=== PATIENT | female | born 1950 | race Caucasian/White ===

== ENCOUNTER 2016-05-06 05:21 | Day surgery (SDC) | payer MEDICARE ==
[~2016-05-06] VITALS: Ht 167.6 cm; Wt 106.0 kg
[2016-05-06] MEDS ORDERED: LACTATED RINGERS 1,000 ML IV SCH (05:59)
[2016-05-06] MEDS ORDERED: LIDOCAINE 1%, 2ML SQ PRN (06:00)
[2016-05-06 06:07] VITALS: BP 145/82
[2016-05-06] MEDS ORDERED: LISI-167 PO (06:15)
[2016-05-06] MEDS ORDERED: LEVO50TA5 PO (06:15)
[2016-05-06] MEDS ORDERED: DOCU100C PO (06:15)
[2016-05-06] MEDS ORDERED: MULT-658 PO (06:15)
[2016-05-06] MEDS ORDERED: ASPI81TA50 PO (06:15)
[2016-05-06] MEDS ORDERED: GABA100C8 PO (06:15)
[2016-05-06] MEDS ORDERED: METF500T4 PO (06:15)
[2016-05-06] MEDS ORDERED: OXCA300T PO (06:15)
[2016-05-06] MEDS ORDERED: ATOR80TA75 PO (06:15)
[2016-05-06] MEDS ORDERED: OXYC5CAP4 PO (06:22)
[2016-05-06] MEDS ORDERED: VANCOMYCIN 1,000 MG ONE (07:03)
[2016-05-06] MEDS ORDERED: LIDOCAINE 0.5%-EPI 1:200K, 50ML ONE (07:03)
[2016-05-06] MEDS ORDERED: BUPIVACAINE/PF-EPI 0.25% 1:200K ONE (07:03)
[2016-05-06] MEDS ORDERED: THROMBIN 5,000 UNIT VIAL TP ONE (07:04)
[2016-05-06] MEDS ORDERED: FENTANYL PF 250 MCG/5ML ONE (07:29)
[2016-05-06] MEDS ORDERED: MIDAZOLAM 1 MG/ML, 2ML ONE (07:29)
[2016-05-06] MEDS ORDERED: LABETALOL 5MG/ML, 20ML IV PRN (09:00)
[2016-05-06] MEDS ORDERED: OXYcodone 5 MG/5 ML ORAL.SOL UDC PO PRN (09:00)
[2016-05-06] MEDS ORDERED: hydrALAzine 20 MG/ML, 1ML IV PRN (09:00)
[2016-05-06] MEDS ORDERED: ACETAMINOPHEN 325 MG TABLET PO PRN (09:00)
[2016-05-06] MEDS ORDERED: ONDANSETRON 2MG/ML, 2ML IVPush PRN (09:00)
[2016-05-06] MEDS ORDERED: METOCLOPRAMIDE 5 MG/ML, 2ML IV PRN (09:00)
[2016-05-06] MEDS ORDERED: FENTANYL PF 100 MCG/2ML ONE (10:45)
[2016-05-06] MEDS ORDERED: OXYcodone 5 MG/5 ML ORAL.SOL UDC ONE (10:45)
[2016-05-06] MEDS: FENTANYL PF 100 MCG/2ML IV PRN ×2 (10:47→10:53)
[2016-05-06] MEDS ORDERED: ACETAMINOPHEN 325 MG TABLET ONE (10:57)
[2016-05-06] MEDS ORDERED: HYDROmorphone 2 MG/ML, 1ML ONE (11:02)
[2016-05-06] MEDS: HYDROmorphone 1 MG/ML, 1ML IV PRN ×2 (11:04→11:24)
[2016-05-06] MEDS ORDERED: MEPERIDINE/PF 25MG/0.5ML ONE (11:17)
[2016-05-06] MEDS ORDERED: MEPERIDINE/PF 25MG/0.5ML IVPush PRN (11:30)
[2016-05-06] MEDS ORDERED: OXYcodone IR 5MG TABLET PO PRN (13:30)
[2016-05-06] MEDS ORDERED: ROCURONIUM 10 MG/ML ONE (16:13)
[2016-05-06] MEDS ORDERED: ONDANSETRON 2MG/ML, 2ML ONE (16:13)
[2016-05-06] MEDS ORDERED: PROPOFOL 10 MG/ML, 20ML ONE (16:13)
[2016-05-06] MEDS ORDERED: SUCCINYLCHOLINE 20 MG/ML, 10ML ONE (16:13)
[2016-05-06] MEDS ORDERED: CEFAZOLIN 1,000 MG ONE (16:13)
== END 2016-05-06 16:40 | disposition home or self-care (01) ==
LOC: OUT 05:21
PROVIDERS: ATTEND Orthopaedic Surgery Orthopaedic Surgery of the Spine
DX: M51.17 Intervertebral disc disorders with radiculopathy, lumbosacral region (principal); G47.33 Obstructive sleep apnea (adult) (pediatric); I10 Essential (primary) hypertension; E11.9 Type 2 diabetes mellitus without complications; E66.9 Obesity, unspecified; Z68.37 Body mass index [BMI] 37.0-37.9, adult; F31.9 Bipolar disorder, unspecified; Z87.440 Personal history of urinary (tract) infections; Z90.49 Acquired absence of other specified parts of digestive tract; Z90.710 Acquired absence of both cervix and uterus
CPT/HCPCS: 63056; 72100; 82962; J0330; J0690; J1170; J2175; J2250; J2405; J2704; J3010; J3370; J3490; J7120

== ENCOUNTER 2017-06-17 05:40 | Inpatient (IN) | payer MEDICARE ==
[~2017-06-17] VITALS: Ht 167.6 cm; Wt 112.4 kg
[~2017-06-17 05:40] MED LIST: ASPI81TA50 PO; ATOR-2 PO; DOCU-180 PO; GABA-826 PO; LEVO50TA5 PO; LISI-167 PO; METF500T5 PO; MULT-658 PO; OXCA300T PO; OXYC5CAP2 PO
[2017-06-17] MEDS ORDERED: LIDOCAINE-MPF 1%, 2ML INFIL ONE (06:30)
[2017-06-17] MEDS ORDERED: LACTATED RINGERS 1,000 ML IV SCH (06:30)
[2017-06-17] MEDS ORDERED: TRAZ150T62 PO (06:46)
[2017-06-17] MEDS ORDERED: OMEP-110 PO (06:46)
[2017-06-17] MEDS ORDERED: TRAM50TA2 PO (06:46)
[2017-06-17] MEDS ORDERED: HEPARIN 1,000 UNITS/ML, 30ML ONE (06:53)
[2017-06-17] MEDS ORDERED: THROMBIN 5,000 UNIT VIAL TP ONE (07:02)
[2017-06-17] MEDS ORDERED: VANCOMYCIN 1,000 MG ONE (07:02)
[2017-06-17] MEDS ORDERED: BACITRACIN 50,000 UNIT ONE (07:03)
[2017-06-17] MEDS ORDERED: LIDOCAINE/PF 1%, 30ML ONE (07:03)
[2017-06-17 07:10] VITALS: BP 167/84
[2017-06-17] MEDS ORDERED: FENTANYL PF 100 MCG/2ML ONE (07:36)
[2017-06-17] MEDS ORDERED: METOCLOPRAMIDE 5 MG/ML, 2ML ONE ×2 (07:36→07:43)
[2017-06-17] MEDS ORDERED: PROPOFOL 50 ML ONE (07:36)
[2017-06-17] MEDS ORDERED: DEXAMETHASONE 4 MG/ML, 1ML ONE ×2 (07:36→07:43)
[2017-06-17] MEDS ORDERED: MIDAZOLAM 1 MG/ML, 5ML ONE (07:37)
[2017-06-17] MEDS ORDERED: EPHEDRINE 50 MG/ML, 1ML ONE (07:38)
[2017-06-17] MEDS ORDERED: GLYCOPYRROLATE 0.2MG/1ML, 5ML ONE (07:43)
[2017-06-17] MEDS ORDERED: ONDANSETRON 2MG/ML, 2ML ONE (07:43)
[2017-06-17] MEDS ORDERED: CEFAZOLIN 1,000 MG ONE (07:43)
[2017-06-17] MEDS ORDERED: NEOSTIGMINE 1 MG/ML, 10ML ONE (07:43)
[2017-06-17] MEDS ORDERED: ROCURONIUM 10 MG/ML,10ML ONE (07:43)
[2017-06-17] MEDS ORDERED: MEPERIDINE/PF 50 MG/ML ONE (09:25)
[2017-06-17] MEDS ORDERED: OXYcodone 5 MG/5 ML ORAL.SOL UDC ONE (09:50)
[2017-06-17] MEDS ORDERED: LABETALOL 5MG/ML, 20ML IV PRN (10:00)
[2017-06-17] MEDS ORDERED: ONDANSETRON 2MG/ML, 2ML IVPush PRN (10:00)
[2017-06-17] MEDS ORDERED: HYDROmorphone 1 MG/ML, 1ML IV PRN (10:00)
[2017-06-17] MEDS ORDERED: OXYcodone 5 MG/5 ML ORAL.SOL UDC PO PRN (10:00)
[2017-06-17] MEDS ORDERED: MEPERIDINE/PF 25MG/0.5ML IVPush PRN (10:00)
[2017-06-17] MEDS ORDERED: FENTANYL PF 100 MCG/2ML IV PRN (10:00)
[2017-06-17] MEDS ORDERED: MIDAZOLAM 1 MG/ML, 2ML IV PRN (10:00)
[2017-06-17] MEDS ORDERED: morphine SULFATE 10 MG/ML, 1ML IV PRN ×2 (11:30→13:00)
[2017-06-17] MEDS ORDERED: PROMETHAZINE 25 MG/ML, 1ML IM PRN (11:30)
[2017-06-17] MEDS ORDERED: BISACODYL 10 MG SUPP PR PRN (11:30)
[2017-06-17] MEDS ORDERED: MAGNESIUM HYDROXIDE 8%, 30ML UDC PO PRN (11:30)
[2017-06-17] MEDS ORDERED: ONDANSETRON 2MG/ML, 2ML IV PRN (11:30)
[2017-06-17] MEDS: NS + 20MEQ KCL 1,000 ML IV SCH (13:06)
[2017-06-17 14:00] VITALS: BP 149/72
[2017-06-17] MEDS: METOCLOPRAMIDE 5 MG/ML, 2ML IV SCH ×2 (14:30→21:46)
[2017-06-17] MEDS: CEFAZOLIN PMX 1GM/50ML 50 ML IVPB SCH (15:47)
[2017-06-17] MEDS ORDERED: GABAPENTIN 100 MG CAPSULE PO SCH (16:00)
[2017-06-17] MEDS ORDERED: INSULIN REGULAR 100 UNITS/ML, 3ML VIAL SQ-INSULIN SCH (16:00)
[2017-06-17] MEDS ORDERED: OXCARBAZEPINE 300MG TABLET PO SCH (16:00)
[2017-06-17] MEDS: PANTOPROZOLE 40MG TABLET PO SCH (16:18)
[2017-06-17] MEDS ORDERED: INSULIN LISPRO 100 UNITS/ML, PEN SQ-INSULIN PRN (16:30)
[2017-06-17] MEDS ORDERED: metFORMIN 500 MG TABLET PO SCH (17:00)
[2017-06-17 20:01] VITALS: BP 150/57
[2017-06-17] MEDS: TRAZODONE 150MG TABLET PO SCH (21:46)
[2017-06-17] MEDS: GABAPENTIN 100 MG CAPSULE PO SCH (21:47)
[2017-06-17] MEDS: OXCARBAZEPINE 300MG TABLET PO SCH (21:47)
[2017-06-17] MEDS: ATORVASTATIN 80 MG TABLET PO SCH (21:47)
[2017-06-18] MEDS: NS + 20MEQ KCL 1,000 ML IV SCH ×3 (00:04→20:00)
[2017-06-18] MEDS: CEFAZOLIN PMX 1GM/50ML 50 ML IVPB SCH (00:04)
[2017-06-18 00:08] VITALS: BP 123/46
[2017-06-18] MEDS: METOCLOPRAMIDE 5 MG/ML, 2ML IV SCH ×4 (02:00→20:00)
[2017-06-18 03:51] VITALS: BP 107/48
[2017-06-18 05:53] LABS: ALBUMIN 2.9 g/dL (3.4-5.0); ANION GAP 7 mmol/L (5-15); CALCIUM 8.4 mg/dL (8.5-10.1); CHLORIDE 108 mmol/L (98-107)
[2017-06-18 05:55] LABS: CREATININE 0.72 mg/dL (0.55-1.02)
[2017-06-18] MEDS: PANTOPROZOLE 40MG TABLET PO SCH ×2 (06:24→16:22)
[2017-06-18] MEDS: LEVOTHYROXINE 50 MCG TABLET PO SCH (06:24)
[2017-06-18] MEDS: ENOXAPARIN 30 MG/0.3 ML SQ SCH ×2 (06:24→17:53)
[2017-06-18] MEDS: HYDROcodone/APAP 10/325 MG TABLET PO PRN ×2 (06:24→10:51)
[2017-06-18 07:54] VITALS: BP 121/52
[2017-06-18] MEDS: LISINOPRIL 10 MG TABLET PO SCH (08:06)
[2017-06-18] MEDS: GABAPENTIN 100 MG CAPSULE PO SCH ×2 (08:06→21:34)
[2017-06-18] MEDS: SENNA/DOCUSATE TABLET PO SCH (08:06)
[2017-06-18] MEDS: DOCUSATE 100 MG CAPSULE PO SCH ×2 (08:06→08:17)
[2017-06-18] MEDS: OXCARBAZEPINE 300MG TABLET PO SCH ×2 (08:12→21:33)
[2017-06-18] MEDS ORDERED: LISINOPRIL 10 MG TABLET PO SCH (09:00)
[2017-06-18 13:12] VITALS: BP 150/59
[2017-06-18 14:32] VITALS: BP 134/62
[2017-06-18 19:00] VITALS: BP 158/69
[2017-06-18] MEDS: TRAZODONE 150MG TABLET PO SCH (21:33)
[2017-06-18] MEDS: HYDROcodone/APAP 5/325 TABLET PO PRN (21:34)
[2017-06-18] MEDS: ATORVASTATIN 80 MG TABLET PO SCH (21:34)
[2017-06-19 00:36] VITALS: BP 137/66
[2017-06-19] MEDS: METOCLOPRAMIDE 5 MG/ML, 2ML IV SCH ×2 (02:00→07:51)
[2017-06-19 05:13] LABS: CHLORIDE 109 mmol/L (98-107)
[2017-06-19 05:23] LABS: ANION GAP 9 mmol/L (5-15); CALCIUM 8.4 mg/dL (8.5-10.1); CREATININE 0.47 mg/dL (0.55-1.02)
[2017-06-19] MEDS: NS + 20MEQ KCL 1,000 ML IV SCH (05:26)
[2017-06-19] MEDS: ENOXAPARIN 30 MG/0.3 ML SQ SCH (06:00)
[2017-06-19] MEDS: LEVOTHYROXINE 50 MCG TABLET PO SCH (06:16)
[2017-06-19] MEDS: PANTOPROZOLE 40MG TABLET PO SCH (06:16)
[2017-06-19 07:47] VITALS: BP 144/75
[2017-06-19] MEDS: DOCUSATE 100 MG CAPSULE PO SCH (07:51)
[2017-06-19] MEDS: HYDROcodone/APAP 5/325 TABLET PO PRN (07:58)
[2017-06-19] MEDS: OXCARBAZEPINE 300MG TABLET PO SCH (07:58)
[2017-06-19] MEDS: SENNA/DOCUSATE TABLET PO SCH (07:58)
[2017-06-19] MEDS: GABAPENTIN 100 MG CAPSULE PO SCH (07:58)
[2017-06-19 08:51] VITALS: BP 124/69
[2017-06-19] MEDS: LISINOPRIL 10 MG TABLET PO SCH (08:52)
[2017-06-19 13:05] VITALS: BP 154/73
== END 2017-06-19 14:25 | disposition home or self-care (01) | DRG 459 ==
LOC: ORIP 05:40 → 4NOR 11:10 → DCLOUNGE 06-19 14:18
PROVIDERS: ADMIT Orthopaedic Surgery Orthopaedic Surgery of the Spine; ATTEND Orthopaedic Surgery Orthopaedic Surgery of the Spine
PROC: 0SG30A0 Fusion of Lumbosacral Joint with Interbody Fusion Device, Anterior Approach, Anterior Column, Open Approach (ICD-10-PCS; 2017-06-17)
PROC: 0SR40JZ Replacement of Lumbosacral Disc with Synthetic Substitute, Open Approach (ICD-10-PCS; 2017-06-17)
PROC: 0SB40ZZ Excision of Lumbosacral Disc, Open Approach (ICD-10-PCS; principal; 2017-06-17 07:30)
DX: M51.17 Intervertebral disc disorders with radiculopathy, lumbosacral region (principal); E43 Unspecified severe protein-calorie malnutrition; Z68.41 Body mass index [BMI] 40.0-44.9, adult; E66.01 Morbid (severe) obesity due to excess calories; M48.07 Spinal stenosis, lumbosacral region; E03.9 Hypothyroidism, unspecified; E11.9 Type 2 diabetes mellitus without complications; E78.5 Hyperlipidemia, unspecified; F31.9 Bipolar disorder, unspecified; G47.33 Obstructive sleep apnea (adult) (pediatric); I10 Essential (primary) hypertension; K21.9 Gastro-esophageal reflux disease without esophagitis; Z79.899 Other long term (current) drug therapy; Z80.6 Family history of leukemia; Z80.8 Family history of malignant neoplasm of other organs or systems; Z82.49 Family history of ischemic heart disease and other diseases of the circulatory system; Z87.440 Personal history of urinary (tract) infections; Z83.3 Family history of diabetes mellitus; Z87.442 Personal history of urinary calculi; Z87.891 Personal history of nicotine dependence; Z90.710 Acquired absence of both cervix and uterus; G89.4 Chronic pain syndrome
CPT/HCPCS: 36415; 72100; 74018; 80048; 82040; 82962; 86850; 86900; C1713; J0690; J1100; J1644; J1650; J2175; J2250; J2270; J2405; J2704; J2710; J3010; J3370; J3480; J3490; C1762; J1815; J2765; J7120